=== PATIENT | female | born 1975 | race Hispanic/Latino ===

== ENCOUNTER 2020-07-06 18:08 | Emergency (ER) | payer SELFPAY ==
[~2020-07-06 18:08] MED LIST: Iopamidol 370 76% 100 ML VIAL ONE
[2020-07-06 19:10] LABS: #Basophils 0.1 thou/uL (0.0-0.2); #Eosinphils 0.4 thou/uL (0.0-0.7); #Lymphocytes 2.5 thou/uL (1.20-3.40); #Monocytes 0.5 thou/uL (0.11-0.59); #Neutrophils 3.7 thou/uL (1.40-6.50); %Basophils 1.2 % (0.0-1.0); %Eosinophils 5.6 % (0.0-10.0); %Lymphocytes 34.5 % (21.0-51.0); %Monocytes 7.3 % (0.0-10.0); %Neutrophils 51.4 % (42.0-75.0); Hemoglobin 11.8 g/dL (12.0-16.0); Mean Corpuscular HGB CONC 32.3 g/dL (32.0-36.0); Mean Corpuscular Hemoglobin 28.4 pg (27.0-31.0); Mean Corpuscular Volume 87.9 fL (78.0-98.0); Mean Platelet Volume 7.8 fL (7.4-10.4); Platelet Count 281 thou/uL (130-400); RBC Distribution Width 13.6 % (11.5-14.5); Red Blood Cell (RBC) Count 4.15 mill/uL (4.20-5.40); White Blood Cell (WBC) Count 7.3 thou/uL (4.8-10.8)
[2020-07-06 19:26] LABS: ALT (SGPT) 24 U/L (8-55); AST (SGOT) 20 U/L (5-34); Alkaline Phosphatase 73 U/L (40-110); Anion Gap 15 mmol/L (10-20); BUN (Urea Nitrogen) 15 mg/dL (7.0-18.7); Bilirubin, Total 0.7 mg/dL (0.2-1.2); Calc. Creatinine Clearance 0 mL/min (70-130); Calcium 9.1 mg/dL (7.8-10.44); Carbon Dioxide 22 mmol/L (22-29); Chloride 108 mmol/L (98-107); Globulin 3.6 g/dL (2.4-3.5); Glucose 99 mg/dL (70-105); Potassium 3.7 mmol/L (3.5-5.1); Protein, Total 7.6 g/dL (6.0-8.3); Sodium 141 mmol/L (136-145)
--- NOTE | 2020-07-06 20:04 | CT ---
CT angiogram of the head CT angiogram of the neck: 07/06/2020 COMPARISON: None HISTORY: Right-sided facial paresthesias for 3 days TECHNIQUE: Axial CT imaging at 1.25 mm intervals from the vertex through the lung apices with IV cont rast using CT angiogram protocol. Coronal and sagittal reformatted imaging obtained FINDINGS: The visualized lung apices are unremarkable. The retroantral fat, the parapharyngeal fat, the parotid glands, and the submandibular glands appear unremarkable bilaterally. The tonsillar pillars, epiglottis and preepiglottic fat, hyoid bone, thyroid cartilage, cricoid cartilage, and level of the glottis appear unremarkable. There is a comple x nodule in the left lobe of the thyroid gland measuring 1.3 cm for which follow-up thyroid ultrasound is advised. The origin of the great vessels is partially obscured by venous contrast media. Bilateral vertebral a rteries appear unremarkable. On the basis of NASCET criteria there is no hemodynamically significant stenosis seen involving the common carotid artery or the internal carotid artery on eithe r side. There are no enlarged lymph nodes seen within the neck. The basilar artery and its branches appear patent with no saccular aneurysm, high-grade stenosis, or vascular occlusion seen involving the posterior circulation. The M1 segment, the MCA bifurcation, and the distal MCA branches appear grossly unremarkable. The A1 segment and the distal LACHELLE branches appear unremarkable as does the anterior communicating art kyung. No saccular aneurysm, high-grade stenosis, or vascular occlusion is seen involving the anterior circulation on either side. Evaluation of the dural venous sinuses appears grossly unremarkable. No acute osseous abnormality is seen. IMPRESSION: Unremarkable CT angiogram of the head and neck.
--- NOTE | 2020-07-06 20:05 | CT ---
Head CT without contrast 07/06/2020: Comparison: None HISTORY: Paresthesias of the face TECHNIQUE: Axial CT imaging at 5 mm intervals from vertex through skull base without contrast FINDINGS: Imaged paranasal sinuses and mastoid air cells well-aerated. No displaced calvarial fractur e, intracranial hemorrhage, midline shift, or mass effect. IMPRESSION: No acute findings. If symptoms persist, follow-up brain MRI suggested.
--- NOTE | 2020-07-06 20:06 | RAD ---
Right shoulder 3 views: 07/06/2020 COMPARISON: None HISTORY: Shoulder pain FINDINGS: There is mild degenerative change involving the right acromioclavicular joint. No acute fra cture or dislocation. No widening of the acromioclavicular or coracoclavicular interspace. IMPRESSION: No acute osseous abnormality.
[2020-07-06] MEDS ORDERED: Aspirin Chewable 81 MG TAB ONE (20:38)
== END 2020-07-06 20:53 | disposition short-term general hospital (02) ==
LOC: BURERS 18:08
DX: R29.810 Facial weakness (principal); R20.2 Paresthesia of skin
CPT/HCPCS: 70450; 70496; 70498; 80053; 84484; 85025; 93005; Q9967